=== PATIENT | male | born 1945 | race Caucasian/White ===

== ENCOUNTER → 2018-02-21 | Outpatient (CLI) | payer OTHER, MEDICARE | LOC: FCPNEURO 21:00 | PROVIDERS: ATTEND Internal Medicine Sleep Medicine | DX: G47.33 Obstructive sleep apnea (adult) (pediatric) (principal) ==

== ENCOUNTER → 2018-04-12 | Outpatient (CLI) | payer OTHER, MEDICARE | LOC: FIMAGING 18:47 | PROVIDERS: ATTEND Physical Medicine & Rehabilitation | DX: M48.061 Spinal stenosis, lumbar region without neurogenic claudication (principal) ==

== ENCOUNTER 2018-04-25 07:01 | Day surgery (SDC) | payer OTHER, MEDICARE ==
[2018-04-25] MEDS ORDERED: LR 1,000 ML IV ONE (07:09)
[2018-04-25] MEDS ORDERED: LIDOCAINE 1% 2 ML INJ ID PRN (07:09)
[2018-04-25] MEDS ORDERED: BUPIVACAINE/EPI 0.5% 30 ML SDV ONE (07:38)
[2018-04-25] MEDS ORDERED: CHLORHEXIDINE GLUC HIBICLENS 118 ML BTL TP ONE (07:38)
[2018-04-25] MEDS ORDERED: THROMBIN (BOVINE) 5,000 UNIT VIAL TP ONE (07:38)
[2018-04-25] MEDS ORDERED: BACITRACIN 50,000 UNITS/10 ML SYR IRR ONE (07:39)
[2018-04-25] MEDS ORDERED: TRANEXAMIC ACID 1,000 MG/10 ML VIAL ONE (07:39)
[2018-04-25] MEDS ORDERED: VANCOMYCIN 1 GM VIAL ONE (07:39)
--- NOTE | 2018-04-25 07:55 | PDANEPAE ---
ANE History of Present Illness lumbar radiculopathy here for L4-5 discectomy ANE Past Medical History - Cardiovascular History Hx Hypertension: Yes Hx Arrhythmias: No Hx Chest Pain: No Hx Coronary Artery / Peripheral Vascular Disease: No Hx CHF / Valvular Disease: No Hx Palpitations: No Cardiovascular History Comment: STENT 1998 REMVL 2009 AND 2 NEW STENTS. POST BLOOD THINNER. 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 - Pulmonary History Hx COPD: No Hx Asthma/Reactive Airway Disease: No Hx Recent Upper Respiratory Infection: No Hx Oxygen in Use at Home: No Hx Sleep Apnea: Yes Sleep Apnea Screening Result - Last Documented: Positive - Neurologic History Hx Cerebrovascular Accident: No Hx Seizures: No Hx Dementia: No - Endocrine History Hx Diabetes: No - Renal History Hx Renal Disorders: No - Liver History Hx Hepatic Disorders: No - Neurological & Psychiatric Hx Hx Neurological and Psychiatric Disorders: No - Cancer History Hx Cancer: Yes Cancer History Comment: SKIN - Congenital Disorder History Hx Congenital Disorders: No - GI History Hx Gastrointestinal Disorders: Yes Gastrointestinal History Comment: UNKNOW TO WHY HE TAKES - Other Health History Other Health History: LUMBAR STENOSIS - Chronic Pain History Chronic Pain: Yes (LOWER LUMBAR WITH RADIATION INTO GLUTEUS) - Surgical History Prior Surgeries: KAREN KNEE SCOPES 2013. LT KNEE SCOPE. REMVL PLANTAR WORT LT HEEL. NASAL LACERATION. FX LT THUMB. KAREN STRABISMUS ANE Review of Systems Review of Systems: - Exercise capacity METS (RN): 6 METS ANE Patient History - Allergies Allergies/Adverse Reactions: No Known Allergies Allergy (Unverified 06/04/15 12:18) - Home Medications Home Medications: Aspirin 81mg (*) DAILY 04/23/18 [Last Taken 04/18/18] Crestor DAILY 04/23/18 [Last Taken 1 Day Ago ~04/24/18] Diovan DAILY 04/23/18 [Last Taken 04/18/18] Effient DAILY 04/23/18 [Last Taken 1 Day Ago ~04/24/18] Herbals/Supplements -Info Only DAILY 04/23/18 [Last Taken 04/18/18] Metoprolol Succinate DAILY 04/23/18 [Last Taken 1 Day Ago ~04/24/18] Pantoprazole Sodium DAILY 04/23/18 [Last Taken 1 Day Ago ~04/24/18] Vitamin D3 DAILY 04/23/18 [Last Taken 04/18/18] Zetia DAILY 04/23/18 [Last Taken 1 Day Ago ~04/24/18] - NPO status NPO Status: no food or drink >8 hours NPO Since - Liquids (Date): 04/24/18 NPO Since - Liquids (Time): 19:30 NPO Since - Solids (Date): 04/24/18 NPO Since - Solids (Time): 19:30 - Anes Hx Anes Hx: no prior problems - Smoking Hx Smoking Status: Never smoked - Alcohol Use Alcohol Use: Occasionally - Family Anes Hx Family Anes Hx: none Family Hx Anesthesia Complications: NEG ANE Labs/Vital Signs - Vital Signs Blood Pressure: 141/73 Heart Rate: 61 Respiratory Rate: 18 O2 Sat (%): 93 Height: 177.8 cm Weight: 83.915 kg ANE Physical Exam - Airway Neck exam: FROM Mallampati Score: Class 3 Mouth exam: normal dental/mouth exam - Pulmonary Pulmonary: no respiratory distress, clear to auscultation - Cardiovascular Cardiovascular: regular rate and rhythym, no murmur, rub, or gallop - ASA Status ASA Status: II ANE Anesthesia Plan Anesthesia Plan: general endotracheal anesthesia Total IV Anesthesia: Yes
[2018-04-25] MEDS ORDERED: MIDAZOLAM 2 MG/2 ML VIAL IVP ONE (07:58)
[2018-04-25] MEDS ORDERED: REMIFENTANIL HCL 1 MG VIAL ONE (08:02)
[2018-04-25] MEDS ORDERED: fentaNYL 100 MCG/2 ML INJ ONE ×2 (08:02→09:47)
[2018-04-25] MEDS ORDERED: LIDOCAINE 2% 100 MG/5 ML SYR ONE (08:02)
[2018-04-25] MEDS ORDERED: PROPOFOL 200 MG/20 ML VIAL ONE (08:02)
[2018-04-25] MEDS ORDERED: PROPOFOL/EMULSION 500 MG/50 ML BOTTLE IV ONE (08:02)
[2018-04-25] MEDS ORDERED: ONDANSETRON 4 MG/2 ML VIAL ONE (08:03)
[2018-04-25] MEDS ORDERED: DEXAMETHASONE 4 MG/ML VIAL ONE (08:03)
[2018-04-25] MEDS ORDERED: KETOROLAC 30 MG/1 ML SDV ONE (08:03)
[2018-04-25] MEDS ORDERED: ROCURONIUM 50 MG/5 ML VIAL ONE (08:03)
--- NOTE | 2018-04-25 08:24 | PDHPUP ---
History & Physical Update H&P update statement: This history and physical update is based on an assessment of the patient which was completed after admission or registration (within 24 hours), but prior to the surgery/procedure. Pt seen and evaluated. No changes noted. H&P update: H&P reviewed & patient examined (none) H&P changes: none
[2018-04-25] MEDS ORDERED: ceFAZolin 2 GM/DEXTROSE 100 ML IV ONE (08:35)
[2018-04-25] MEDS ORDERED: TRANEXAMIC ACID 1,000 MG in NS 100 ML IV ONE (08:36)
[2018-04-25] MEDS ORDERED: ePHEDrine SULFATE 25 MG/5 ML SYR ONE (09:28)
[2018-04-25] MEDS ORDERED: fentaNYL 100 MCG/2 ML INJ IVP PRN (09:58)
[2018-04-25] MEDS ORDERED: PROMETHAZINE HCL 25 MG/ML INJ IVP PRN (09:58)
[2018-04-25] MEDS ORDERED: oxyCODONE IR 5 MG TAB PO PRN (09:58)
[2018-04-25] MEDS ORDERED: ONDANSETRON 4 MG/2 ML VIAL IVP PRN (09:58)
[2018-04-25] MEDS ORDERED: HYDROmorphONE/DILAUDID 1 MG/ML INJ IVP PRN (09:58)
[2018-04-25] MEDS ORDERED: HYDROCODONE/APAP 5/325 TAB PO PRN (09:58)
[2018-04-25] MEDS ORDERED: ACETAMINOPHEN 500 MG TAB PO PRN (09:58)
[2018-04-25] MEDS ORDERED: NALOXONE HCL 0.4 MG/ML INJ IVP PRN (09:58)
--- NOTE | 2018-04-25 09:59 | POSTANESTH ---
Post Anesthetic Evaluation Cardiovascular Status: Normal, Stable, Similar to Pre-Op Cond Respiratory Status: Normal, Stable, Similar to Pre-op Cond. Level of Consciousness/Mental Status: Can Participate in Eval, Alert and Oriented Pain Control: Adequate, Prn Tx Ordered Nausea/Vomiting Control: Adequate, Prn Tx Ordered Complications Possibly Related to Anesthesia: None Noted
--- NOTE | 2018-04-25 10:33 | SUROPNOTE ---
[facility] Operative Report - Surgery Date: 04/25/18 Pre-operative Diagnosis: Lumbar Spinal Stenosis Post-operative Diagnosis: Same Procedure: Left L4/5 Minimally Invasive Lumbar Jorge-laminectomy and Bilateral Decompression Use of a surgical microscope Surgeon: Helio Fritz MD Automat Watcher: Marciano Blanton CSA Anesthesia: General endotracheal anesthesia Findings: As expected lumbar spinal stenosis Estimated Blood Loss: 10mL Drains: None Specimens: None Complications: None Condition: Transferred to PACU in stable condition. Implants: None Indications: This patient was seen in my office and diagnosed with lumbar spinal stenosis. I have explained all options of treatment for the patient, and the patient has elected to proceed with operative management. I have explained all risks, benefits, and alternatives of the proposed procedure. The risks that we have discussed include , blindness, nerve damage, infection, dural tear, failure of surgery to alleviate pre-operative symptoms, possible to conversion to an open decompression, and possible need for further operation. In addition to the aforementioned procedure, I also discussed with the patient that other procedures may be indicated during the course of surgery that would be considered in the patients best interest. The patient expressed understanding of this. Pre-operative: The proposed L4/5 incision site was marked in the pre-operative holding area by me. The patient was then taken to the operating room in stable condition. Following smooth induction of general anesthesia, the patient was positioned prone on a Deny table in mild reverse Trendelenburg with all down surfaces well-padded. The patient was then prepped and draped in the usual sterile fashion. Pre-operative antibiotics were administered within one hour of the incision. A surgical timeout was performed, and all parties involved in the procedure were in agreement on the correct patient, location, and procedure to be performed. Level identification: The proposed L4/5 levels were identified using C-arm fluoroscopy and the skin was marked for the proposed incision. Based on pre-operative templating, a spinal needle was inserted under fluoroscopic guidance to the level of the decompression to be performed, 1.5cm from midline on the patients side. Following radiographic confirmation of proposed endoscopic trajectory, a 25mm longitudinal incision was made through both the skin and fascia in an expected trajectory. Electrocautery was used to coagulate any bleeding vessels identified above the level of the fascia. A blunt probe was then passed through the fascial incision and docked on the lateral pars of the proposed level of dissection. Serial dilation was then performed, up to a size that would accommodate placement of a Metrx decompression tube. A sterile articulating arm was then attached to the table and affixed to the tube. Proper trajectory was again confirmed by lateral radiograph. The tube was docked on the caudal aspect of the cephalad level. Decompression: A high-speed judie was used to perform a hemilaminectomy of both the level cephalad and caudal to be decompressed. A partial facetectomy was performed at this level to allow for proper decompression, involving less than one-third of the medial facet at this level. The ligamentum flavum was left intact as a buffer to protect the dura while the ventral spinal process and contralateral lamina using a high-speed judie. At this time the ligamentum flavum was elevated from the dura using blunt dissectors and resected using Kerrison rongeurs. The contralateral lateral recess and foramina were identified and decompressed in a similar fashion. A Henderson ball probe was used to ensure thorough decompression of both the exiting and traversing nerve root on both sides. At this time, a ball probe was used to probe all foraminae at the affected levels. Where necessary, a small Kerrison rongeur was used to decompress remaining bone and soft tissue so that all nerve roots would traverse freely through the foraminae. In total, 50% of the caudal L4 lamina and 50% of the cephalad lamina of L5 were removed. An xray was taken, demonstrating adequate extent of the decompression. Closure: The surgical field was then copiously irrigated with sterile saline. Vancomycin powder was then applied to the surgical field. #1 braided and absorbable interrupted sutures were used to repair the spinous processes and interspinous ligaments. There was good bony apposition noted between all repaired spinous processes. Then 2-0 interrupted sutures were used to repair the dermal layer, and a separate 3-0 monofilament suture was used to repair the subcutaneous layer in a running fashion. All sutures used were absorbable. Topical adhesive was then applied to the skin and allowed to dry. A sterile island dressing was applied over the surgical incision. A surgical count was performed before initiation of closure and following the procedure, and all were correct. I was present for the entire procedure. Surgical microscope use: A surgical microscope was utilized throughout the decompressive portion of this case. This was deemed necessary for safe and accurate surgical decompression of affected nerve roots. curriculum assistant: A assistant tennis coach was used throughout the case, and deemed necessary for safe neural retraction, hemostasis, and suction. Recovery: The patient was extubated uneventfully in the operating room. The patient was taken to the recovery room in stable condition. Sequential compression devices for VTE prophylaxis were applied to the patients lower extremities, and were ordered to be used while the patient was non-ambulatory. Chemical VTE prophylaxis was considered to be contraindicated for this patient because of the risk of bleeding near the epidural space. Helio Fritz MD
[2018-04-25 12:03] VITALS: BP 130/65
== END 2018-04-25 12:00 | disposition home or self-care (01) ==
LOC: FSGY 07:01
PROVIDERS: ATTEND Orthopaedic Surgery Orthopaedic Surgery of the Spine
PROC: 01NB0ZZ Release Lumbar Nerve, Open Approach (ICD-10-PCS; principal; 2018-04-25 08:30)
PROC: 4A1004G Monitoring of Central Nervous Electrical Activity, Intraoperative, Open Approach (ICD-10-PCS; principal; 2018-04-25 08:30)
PROC: 00NY0ZZ Release Lumbar Spinal Cord, Open Approach (ICD-10-PCS; principal; 2018-04-25 08:30)
DX: M48.061 Spinal stenosis, lumbar region without neurogenic claudication (principal); I10 Essential (primary) hypertension; G47.30 Sleep apnea, unspecified; Z95.5 Presence of coronary angioplasty implant and graft
CPT/HCPCS: J0690; J1100; J1885; J2001; J2250; J2405; J2704; J3010; J3370